=== PATIENT | male | born 1930 | race Caucasian/White ===

== ENCOUNTER 2017-06-20 11:51 | Observation (INO) | payer OTHER ==
--- NOTE | 2017-06-20 11:56 | EDPHY ---
H & P HPI/ROS: CHIEF COMPLAINT: Chest pain HISTORY OF PRESENT ILLNESS: The patient is an anticoagulated 86 y/o male complaining of left lateral chest pain and lightheadedness onset today. His medical history includes atrial fibrillation, hypertension, TIA, lymphoma, CHF, and CAD with ID. His pain is intermittent, exacerbated by movement, and sharp in quality. His pain is nearly absent at rest and worse with movement and palpation. He feels lightheaded when moving around, but okay at rest. He also has left hand tingling with exertion. He feels cognitively slow today. REVIEW OF SYSTEMS: A ten point review of systems was performed and is negative with the exception of the items mentioned in the HPI. Past medical history: Atrial fibrillation - Coumadin, CAD with ID, hypertension , TIA, B-cell lymphoma, melanoma, CHF, depression, hard of hearing Past surgical history: Stents x4 reported by patient during prior visit. Family history: Noncontributory Social history: Never smoker. Lives in independent living at [place]. Retired. Friend at bedside. Prior medical records reviewed including ED visit 02/27/14 for chest pain. General Appearance: Alert. Vital signs reviewed. HR 60. Initial blood pressure 180/109. Eyes: Pupils equal and round, no conjunctival injection, no discharge. Anicteric. ENT, Mouth: Mucous membranes are moist, no oropharyngeal erythema or edema. Neck: No lymphadenopathy, supple. No jugular venous distension. Respiratory: Lungs are clear to auscultation; no wheezes, rales, or rhonchi. Chest: Tenderness over left upper anterior chest, no crepitus. Cardiovascular: Irregularly irregular rate and rhythm; no murmur, rub, or gallop. Gastrointestinal: Abdomen is soft and nontender, no masses or organomegaly. Skin: Warm and dry, no rashes on exposed skin, normal color. Specifically, no vesicular lesions noted on the thorax or back. Back: Nontender to palpation over the thoracolumbar spine. No CVAT. Extremities: No lower extremity edema, no calf tenderness or swelling. Neurological: Alert and oriented. Moving all four extremities easily and equally. Psychiatric: Normal affect. - Medical/Surgical History Hx Asthma: No Hx Chronic Respiratory Disease: No Hx Diabetes: No Hx Cardiac Disease: Yes Hx Renal Disease: No Hx Cirrhosis: No Hx Alcoholism: No Hx HIV/AIDS: No Hx Splenectomy or Spleen Trauma: No Other PMH: 4 stents, - Social History Smoking Status: Unknown if ever smoked Constitutional: Initial Vital Signs Temperature (C) 36.8 C 06/20/17 11:59 Heart Rate 59 L 06/20/17 11:59 Respiratory Rate 18 06/20/17 11:59 Blood Pressure 180/109 H 06/20/17 11:59 O2 Sat (%) 92 06/20/17 11:59 O2 Delivery Mode Room Air Allergies/Adverse Reactions: Heparin Analogues [Heparin Agents] Allergy (Severe, Verified 07/20/12 12:00) Other-Enter Comments morphine [Morphine] Allergy (Severe, Verified 07/20/12 12:00) PARANOIA Home Medications: Medication Instructions Recorded Aspirin [Aspir 81] 81 mg PO DAILY 07/20/12 Lovastatin 10 mg PO HS 07/20/12 Metoprolol Tartrate [Lopressor 25 25 mg PO BID 07/20/12 mg (RX)] Multivitamins [Tab-A-Ramírez] 1 each PO DAILY 07/20/12 Pharmacy Complete 07/20/12 07/20/12 Potassium Chloride 10 meq PO BID 07/20/12 Sotalol HCl [Sotalol] 120 mg PO BID 07/20/12 Terazosin HCl 4 mg PO DAILY 07/20/12 Terazosin HCl 6 mg PO HS 07/20/12 Warfarin Sodium 5 mg PO SUTUWETHSA@16 07/20/12 Warfarin Sodium 7.5 mg PO MOFR@16 07/20/12 Lisinopril 06/20/17 Metoprolol Tartrate 06/20/17 amLODIPine BESYLATE 06/20/17 Medical Decision Making - Diagnostics Imaging Results: Imaging Impressions Chest X-Ray 06/20/17 12:10 Impression: Findings suggesting underlying bronchitis. Interstitial prominence bilaterally, which could represent viral syndrome or early pulmonary edema. Stable cardiomegaly. Imaging: I viewed and interpreted images myself ED Course/Re-evaluation: This is an 86 y/o male with significant cardiac history who presents with a few- hour history of intermittent left-sided chest pain. Pain is relieved at rest and worse with palpation and movement. He has reproducible chest tenderness over his left anterior chest above his nipple line and has a-fib on exam, rate controlled. He is afebrile with a normal SpO2 on room air. No infectious symptoms. The 12 lead EKG was interpreted by myself. Atrial fibrillation rate 55. See hard copy and/or "tracemaster" electronic copy for interpretation. Chest x-ray: possible bronchitis, cardiomegaly. 1355: Reevaluated patient. He says he currently feels "exhausted" and any time he moves he gets "shooting variety" chest pain across his left anterior and lateral chest. Labs are unremarkable, including initial troponin. His INR is therapeutic. Chest x-ray does not show obvious acute abnormality. I've recommend admission for observation and repeat troponin. He agrees with plan for admission. Spoke with hospitalist service. Dr. Zambrano accepts admission. It is my suspicion that this is musculoskeletal chest pain. His EKG is not suggestive of pericarditis. Nothing to suggest pneumonia on his chest x-ray. He has a normal white blood cell count and no fever and I do not in suspect infection. PE seems unlikely given his adequate INR, with therapeutic levels recorded 5 days ago and last month also. Given his history of coronary artery disease, I am recommending admission for serial troponins, repeat EKG, and stress testing as needed. He has been persistently hypertensive in the emergency department. He is compliant with his medications. Differential Diagnosis: Chest pain including but not limited to myocardial ischemia, pulmonary embolus, chest wall pain, pleural inflammation and pulmonary infectious causes. - Data Points Laboratory Results: Laboratory Results 06/20/17 12:15 06/20/17 12:15 06/20/17 06/20/17 06/20/17 12:15 12:15 12:15 WBC RBC Hgb Hct MCV MCH MCHC RDW Plt Count MPV Neut % (Auto) Lymph % (Auto) Chambers % (Auto) Eos % (Auto) Baso % (Auto) Nucleat RBC Rel Count Absolute Neuts (auto) Absolute Lymphs (auto) Absolute Monos (auto) Absolute Eos (auto) Absolute Basos (auto) Absolute Nucleated RBC Immature Gran % Immature Gran # PT 24.7 SEC H SEC (12.0-15.0) INR 2.23 H (0.83-1.16) Sodium 143 mEq/L mEq/L (135-145) Potassium 3.9 mEq/L mEq/L (3.5-5.2) Chloride 104 mEq/L mEq/L (97-110) Carbon Dioxide 27 mEq/l mEq/l (22-31) Anion Gap 12 mEq/L mEq/L (8-16) BUN 14 mg/dL mg/dL (7-23) Creatinine 0.8 mg/dL mg/dL (0.7-1.3) Estimated GFR > 60 Glucose 80 mg/dL mg/dL (70-100) Calcium 9.0 mg/dL mg/dL (8.5-10.4) Troponin I < 0.012 ng/mL ng/mL (0.000-0.034) NT-Pro-B Natriuret Pep 1180 pg/mL H pg/mL (0-450) 06/20/17 12:15 WBC 6.72 10^3/uL 10^3/uL (3.80-9.50) RBC 5.30 10^6/uL 10^6/uL (4.40-6.38) Hgb 16.2 g/dL g/dL (13.7-17.5) Hct 47.0 % % (40.0-51.0) MCV 88.7 fL fL (81.5-99.8) MCH 30.6 pg pg (27.9-34.1) MCHC 34.5 g/dL g/dL (32.4-36.7) RDW 14.6 % % (11.5-15.2) Plt Count 95 10^3/uL L 10^3/uL (150-400) MPV 11.6 fL fL (8.7-11.7) Neut % (Auto) 70.6 % % (39.3-74.2) Lymph % (Auto) 15.6 % % (15.0-45.0) Chambers % (Auto) 9.5 % % (4.5-13.0) Eos % (Auto) 3.6 % % (0.6-7.6) Baso % (Auto) 0.4 % % (0.3-1.7) Nucleat RBC Rel Count 0.0 % % (0.0-0.2) Absolute Neuts (auto) 4.74 10^3/uL 10^3/uL (1.70-6.50) Absolute Lymphs (auto) 1.05 10^3/uL 10^3/uL (1.00-3.00) Absolute Monos (auto) 0.64 10^3/uL 10^3/uL (0.30-0.80) Absolute Eos (auto) 0.24 10^3/uL 10^3/uL (0.03-0.40) Absolute Basos (auto) 0.03 10^3/uL 10^3/uL (0.02-0.10) Absolute Nucleated RBC 0.00 10^3/uL 10^3/uL (0-0.01) Immature Gran % 0.3 % % (0.0-1.1) Immature Gran # 0.02 10^3/uL 10^3/uL (0.00-0.10) PT INR Sodium Potassium Chloride Carbon Dioxide Anion Gap BUN Creatinine Estimated GFR Glucose Calcium Troponin I NT-Pro-B Natriuret Pep Departure - Departure Disposition: [facility] Acute Clinical Impression: Chest pain Qualifiers: Chest pain type: other chest pain Qualified Code(s): R07.89 - Other chest pain Atrial fibrillation Qualifiers: Atrial fibrillation type: unspecified Qualified Code(s): I48.91 - Unspecified atrial fibrillation Condition: Fair Report Scribed for: Tatum Read Report Scribed by: Sujey Levy Date of Report: 06/20/17 Time of Report: 14:01 Physician Review and Approval Statement: 06/20/17 11:56 Portions of this note were transcribed by the medical screener. I, Dr. Tatum Read, personally performed the history, physical exam, and medical decision- making; and confirmed the accuracy of the information in the transcribed note.
[2017-06-20 12:02] VITALS: TEMP 98.2
--- NOTE | 2017-06-20 12:02 | CPEKG ---
Heart Rate: 55 RR Interval: 1091 QRSD Interval: 110 QT Interval: 444 QTC Interval: 425 QRS [place]: 14 T Wave [place]: 41 EKG Severity - ABNORMAL ECG - EKG Impression: ATRIAL FIBRILLATION EKG Impression: NONSPECIFIC INTRAVENTRICULAR CONDUCTION DELAY Electronically Signed By: Tatum Read 20-Jun-2017 15:17:28
[2017-06-20 12:20] LABS: PLATELET COUNT 95 10^3/uL (150-400)
[2017-06-20 12:31] LABS: INR 2.23 (0.83-1.16); PROTIME(PATIENT) 24.7 SEC (12.0-15.0)
[2017-06-20] MEDS ORDERED: ONDANSETRON 4 MG/2 ML VIAL IVP PRN (14:31)
[2017-06-20] MEDS ORDERED: ONDANSETRON DISINTEGRATING 4 MG TAB PO PRN (14:31)
[2017-06-20] MEDS ORDERED: ACETAMINOPHEN 325 MG TAB PO PRN (14:31)
--- NOTE | 2017-06-20 15:07 | GHP ---
[f rep st] HISTORY AND PHYSICAL DATE OF ADMISSION: 06/20/2017 CHIEF COMPLAINT: Chest pain. HISTORY OF PRESENT ILLNESS: The patient is an 86-year-old male with a history of CAD, A fib and hypertension who lives independently at [place] and presents to the ED with left-sided chest pain. He states his pain has been ongoing for approximately 5 days. He describes it as a shooting pain, which is occasionally worse with inspiration. He denies associated nausea or shortness of breath. Specifically, no orthopnea. No fevers, cough or respiratory symptoms. He denies any recent travel or recent surgery. He is anticoagulated on Coumadin. The pain is alleviated with rest and exacerbated by any type of movement in bed, though he does not describe this as exertional chest pain. He also reports a little bit of lightheadedness. He has a history of coronary artery disease and has had a stent placed many years ago. He denies any heavy lifting or new exercises. In the emergency department, his EKG is nonischemic, and his troponin is negative. Given his risk factors, he is admitted to the hospital for further evaluation. PAST MEDICAL HISTORY: 1. Coronary artery disease with history of TN, status post stent. 2. Chronic atrial fibrillation. 3. Chronic anticoagulation. 4. Hypertension. 5. Hyperlipidemia. 6. History of B-cell lymphoma. 7. Melanoma. 8. Benign prostatic hypertrophy. 9. History of TIA. 10. Depression. 11. Chronic thrombocytopenia. 12. Hiatal hernia. 13. Diverticulosis. PAST SURGICAL HISTORY: Cholecystectomy, rotator cuff repair, carpal tunnel surgery, tonsillectomy, right inguinal hernia repair. MEDICATIONS: Please see Mulu for completed outpatient medication list. ALLERGIES: Heparin and morphine. FAMILY HISTORY: His mother and father of heart failure. SOCIAL HISTORY: The patient lives independently at [facility]. He has 2 friends at the bedside. He has 1 son, who lives in [place]. He is a nonsmoker and denies alcohol or drug use. REVIEW OF SYSTEMS: A 10-point review of systems was performed and is negative, except per HPI. OBJECTIVE: VITAL SIGNS: Temperature is 36.8, blood pressure 163/93. Heart rate is in the 50s, respiratory rate 16. He is 93% on room air. GENERAL: Patient is awake, alert, oriented, in no acute distress. HEENT: Head is atraumatic, normocephalic. Pupils equal, round, reactive to light. Extraocular muscles are intact. Oropharynx clear. Mucous membranes are moist. NECK: Supple. There is no JVD. HEART: Irregularly irregular, without murmur. LUNGS: Reveal faint bibasilar crackles. ABDOMEN: Soft, nondistended , nontender, normoactive bowel sounds. EXTREMITIES: Without cyanosis, clubbing , or edema. There is some bilateral brawny discoloration. EKG is personally reviewed and interpreted, shows atrial fibrillation with a heart rate of [address]-segment or T-wave changes concerning for acute ischemia. Chest x-ray is personally reviewed and interpreted. There is an elevated left hemidiaphragm. There is mild cardiomegaly with mild interstitial prominence bilaterally. No obvious focal infiltrate, though there could be some early pulmonary edema. ASSESSMENT AND PLAN: The patient is an 86-year-old male with a history of coronary artery disease and chronic atrial fibrillation who is anticoagulated and presents to the emergency department with left-sided chest pain. 1. Chest pain. This has been present for 5 days, and he has a negative troponin on arrival with a nonischemic EKG. My suspicion for an acute coronary syndrome is low. My suspicion for PE is low given his therapeutic INR over the past several months. He will be admitted to the PCU. We will trend his troponin, repeat an EKG, monitor on telemetry, and plan for nuclear medicine stress test in the morning given his history of coronary disease. I also query if he may have some early heart failure. Will check a BNP and an echocardiogram. Overall, I note the reproducible pain with chest wall tenderness and query if this may be musculoskeletal. If his above workup is reassuring, he could likely discharge home tomorrow. 2. Atrial fibrillation. This is chronic. He is rate controlled. INR is therapeutic. Will ask Pharmacy to dose Coumadin and continue his beta noble. 3. History of coronary artery disease. Workup as above. Will continue his aspirin, beta noble, statin and lisinopril. 4. Hypertension. Cont outpatient medications, add prn hydralazine for SBP > 160. Could also up-titrate Norvasc. 4. Code status: Patient is DNR. 5. Deep venous thrombosis prophylaxis: Patient is already anticoagulated. 6. Disposition: Patient admitted to observation status to the PCU. /[id number]/MODL MTDD
--- NOTE | 2017-06-20 16:22 | CPEKG ---
Heart Rate: 69 RR Interval: 870 QRSD Interval: 96 QT Interval: 460 QTC Interval: 493 QRS [place]: 45 T Wave [place]: 31 EKG Severity - ABNORMAL ECG - EKG Impression: ATRIAL FIBRILLATION EKG Impression: BORDERLINE PROLONGED QT INTERVAL Electronically Signed By: Stone Navarro 22-Jun-2017 09:16:59
[2017-06-20] MEDS ORDERED: NITROGLYCERIN 0.4 MG BTL SL PRN (17:09)
[2017-06-20] MEDS ORDERED: WARFARIN SODIUM 5 MG TAB PO SCH (17:15)
[2017-06-20] MEDS ORDERED: hydrALAZINE 25 MG TAB PO PRN (17:15)
[2017-06-20] MEDS: METOPROLOL TARTRATE 25 MG TAB PO SCH (19:38)
[2017-06-20 19:47] VITALS: RESP 16
[2017-06-20] MEDS ORDERED: LISINOPRIL 20 MG TAB PO SCH (21:00)
[2017-06-20] MEDS ORDERED: TERAZOSIN HCL 2 MG CAP PO SCH (21:00)
[2017-06-21] MEDS: METOPROLOL TARTRATE 25 MG TAB PO SCH ×2 (07:20→08:23)
[2017-06-21 07:52] VITALS: BP 161/98; PULSE 70; O2SAT 92
[2017-06-21] MEDS ORDERED: POTASSIUM CL 20 MEQ TAB PO SCH (09:00)
--- NOTE | 2017-06-21 12:28 | ECHO ---
[email or web address] [address] Main: [phone] Fax: Transthoracic Echocardiogram Name: BRIDGER MARIA MR#: [id number] Study Date: 06/21/2017 Study Time: 09:06 AM Date of : 1930 Age: 86 year(s) Height: 188 cm (74 in.) Weight: 90.72 kg (200 lb.) BSA: 2.17 m2 Gender: Male Examination: Echo Indication: Chest pain/h/o CAD/eval for WMA Image Quality: Contrast: Requested by: Mandy Zambrano BP: 161 mmHg/98 mmHg Heart Rate: Rhythm: Indication: Chest pain/h/o CAD/eval for WMA Procedure Staff Profiling Machine Set Up Operator Tool: Vickie Lee Reading Physician: Kai Wang Requesting Provider: Conclusions: Normal global systolic LV function. EF is 68 %. Mild mitral valve regurgitation is present. Mild to moderate aortic valve regurgitation. The pulmonary artery pressure is moderately to severely increased. Mildly dilated aortic root measuring 4.2 cm. Mildly dilated ascending aorta measuring 4.2 cm. Measurements: Chambers Valvular Assessment AV/MV Valvular Assessment TV/PV Normal Normal Normal Name Value Range Name Value Range Name Value Range Ao Batsheva (MM): 4.2 cm (2.2 cm-3.7 AV meanP mmHg ( - ) TR Vmax: 3.45 mm/s ( - ) cm) MV E Vmax: 0.90 m/s ( - ) TR PGmax: 48 mmHg ( - ) IVSd (2D): 0.9 cm (0.6 cm-1.1 MV A Vmax: 0.44 m/s ( - ) syst. PAP: 53 mmHg ( - ) cm) MV E/A: 2.05 ( - ) LVDd (2D): 5.2 cm (4.2 cm-5.9 cm) LVDs (2D): 3.1 cm (2.1 cm-4 cm) LVPWd (2D): 0.9 cm (0.6 cm-1 cm) LVEF (MOD4): 68 % (>=55 %) Continued Measurements: Chambers Valvular Assessment AV/MV Valvular Assessment TV/PV Name Value Name Value Name Value LADs: 4.6 cm MV E' Septal: 0.09 m/s CVP (est.): 5 mmHg LADs Lon.8 cm MV E/E' Septal: 10.50 Patient: BRIDGER MARIA Study Date: 06/21/2017 Page 1 of 2 09:06 AM LA Area: 24.1 cm2 MV E/E' Lateral: 10.00 Additional Vessels Name Value Ao Ascendin.2 cm Findings: Left Ventricle: Normal size left ventricle. No LV hypertrophy. Normal global systolic LV function. EF is 68 %. No regional wall motion abnormality. Right Ventricle: Normal size right ventricle. Left Atrium: The left atrium is mildly dilated. Right Atrium: The right atrium is mildly dilated. Mitral Valve: Mild mitral annular calcification. Mild mitral valve regurgitation is present. Aortic Valve: The aortic valve is normal in appearance and function. The aortic valve is tri-leaflet. Minimal aortic cusp calcification is noted. Mild to moderate aortic valve regurgitation. Tricuspid Valve: The tricuspid valve is normal in appearance and function. Mild tricuspid regurgitation is present. The pulmonary artery pressure is moderately to severely increased. The pulmonary artery pressure is mild to moderately increased. RVSP is 53-58mmHG. . Pulmonic Valve: The pulmonic valve is normal in appearance and function. Aorta: The aorta is normal. Mildly dilated aortic root measuring 4.2 cm. Mildly dilated ascending aorta measuring 4.2 cm. Pericardium: Trivial pericardial effusion. (No Signature Object) Patient: BRIDGER MARIA Study Date: 06/21/2017 Page 2 of 2 09:06 AM [id number]
--- NOTE | 2017-06-21 12:47 | ASDISCHSUM ---
Discharge Information Plan Status:Home with No Needs Medically Cleared to Leave:06/20/2017 Discharge Date:06/21/2017 10:01 AM CM D/C Disposition: ADT D/C Disposition:Home, Routine, Self-Care Projected Discharge Date:06/21/2017 12:00 AM Transportation at D/C: Discharge Delay Reason: Follow-Up Date:06/21/2017 12:00 AM Discharge Slot: Final Diagnosis: Placement Information Patient Contact Information Contact Name:JOSEP Relationship:Friend Address: Work Phone: City:[place] Alternate Phone: [facility]/Zip Code:[place] Email: Financial Information Financial Class:Medicare Advantage Plans Primary Plan Desc:[facility] [employer] Primary Plan Number:[id number] Secondary Plan Desc: Secondary Plan Number: Assessment Information Intervention Information
[2017-06-21] MEDS ORDERED: WARFARIN SODIUM 5 MG TAB PO SCH (16:00)
--- NOTE | 2017-06-21 23:28 | GDS ---
[f rep st] DISCHARGE SUMMARY DISCHARGE DIAGNOSIS: Chest pain, thought musculoskeletal. HISTORY OF PRESENT ILLNESS: An 86-year-old male, who presents with complaints of chest pain that is worse with movement of his upper chest. For details of patient's initial presentation, please see th e history and physical dated 06/20/2017. CONSULTATIVE SERVICES: None. PROCEDURES: None. HOSPITAL COURSE BY ISSUE: Chest pain: Patient had cardiac comorbidities and, therefore, was admitte d to rule out overnight. Patient had negative EKGs, negative troponins, and was stable on telemetry monitoring. Patient did not desire stress testing the morning after presentation as he had no intent ion of pursuing risk stratification if in fact the test was positive. Patient was discharged on his normal stable cardiac medications with normal vital signs and labs on the day of disposition. He francis l continue to follow in the outpatient setting with his primary care provider for long-term managemen t of his medical comorbidities. MEDICATIONS AT THE TIME OF DISPOSITION: Please reference the med rec printed on 06/21/2017. FOLLOWUP APPOINTMENTS: With his PCP in the next 3-4 weeks for basic post disposition followup. PENDING STUDIES: At the time of this dictation were none. /[id number]/MODL
== END 2017-06-21 10:01 | disposition home or self-care (01) ==
LOC: EDUNIT# → F2W 16:29
PROVIDERS: ADMIT Hospitalist; ATTEND Hospitalist
DX: R07.9 Chest pain, unspecified (principal); I48.2 Chronic atrial fibrillation; I11.0 Hypertensive heart disease with heart failure; I25.10 Atherosclerotic heart disease of native coronary artery without angina pectoris; I50.9 Heart failure, unspecified; D69.6 Thrombocytopenia, unspecified; I25.2 Old myocardial infarction; N40.0 Benign prostatic hyperplasia without lower urinary tract symptoms; F32.9 Major depressive disorder, single episode, unspecified; K44.9 Diaphragmatic hernia without obstruction or gangrene; Z79.01 Long term (current) use of anticoagulants; Z85.72 Personal history of non-Hodgkin lymphomas; Z86.73 Personal history of transient ischemic attack (TIA), and cerebral infarction without residual deficits; Z95.5 Presence of coronary angioplasty implant and graft; Z66 Do not resuscitate
CPT/HCPCS: 71046; 93005; 93306; G0378